=== PATIENT | female | born 1990 | race African-American/Black ===

== ENCOUNTER 2024-09-03 11:17 | Emergency (ER) | payer OTHER ==
[~2024-09-03] VITALS: Ht 167.6 cm; Wt 99.8 kg
--- NOTE | 2024-09-03 11:23 | ERN ---
General Chief Complaint: Abdominal Pain Stated Complaint: ABDOMINAL PAIN Time Seen by MD: 11:19 Source: patient History of Present Illness Initial Comments IN HIS IS A 34-YEAR-OLD FEMALE COMING IN TO BE EVALUATED FOR SUPRAPUBIC PAIN. PATIENT IS A AT 23 WEEKS BY DATE AND STATES HE IS A NEWLY ESTABLISHED PATIENT OF DR. SOLIS. SHE STATES THAT THE PAIN BEGAN TWO DAYS AGO AND HAS BEEN PROGRESSIVELY GETTING WORSE. ALONG WITH THE PAIN PATIENT STATES THAT SHE HAS BEEN HAVING NAUSEOUSNESS AND VOMITING. Allergies: Coded Allergies: No Known Drug Allergies (Unverified Allergy, Unknown, 09/03/24) ROS Dictation CONSTITUTIONAL: NO CHILLS, NO FEVER, NO WEAKNESS, NO DIAPHORESIS, NO MALAISE. HEAD/FACE: NO SIGNS OF TRAUMA. EENT: NO EYE PAIN, NO BLURRED VISION, NO TEARING, NO DOUBLE VISION, NO EAR PAIN, NO EAR DISCHARGE, NO NOSE PAIN, NO NASAL CONGESTION, NO THROAT PAIN, NO THROAT SWELLING, NO MOUTH PAIN. RESPIRATORY: NO COUGH, NO ORTHOPNEA, NO SOB, NO STRIDOR, NO WHEEZING. CARDIOVASCULAR: NO CHEST PAIN, NO EDEMA, NO PALPITATIONS, NO SYNCOPE. GASTROINTESTINAL/ABDOMINAL: ABDOMINAL PAIN, NO CONSTIPATION, NO DIARRHEA, NAUSEA, VOMITING. GENITOURINARY: NO ABNORMAL DISCHARGE, NO DYSURIA, NO FREQUENT URINATION, NO HEMATURIA. NO COMPLAINTS OF PAIN IN THE GENITALS. MUSCULOSKELETAL: NO BACK PAIN, NO GOUT, NO JOINT PAIN, NO JOINT SWELLING, NO MUSCLE PAIN, NO MUSCLE STIFFNESS, NO NECK PAIN. INTEGUMENTARY: NO CHANGE IN COLOR, NO CHANGE IN HAIR/NAILS, NO DRYNESS, NO LESION, NO LUMPS, NO RASH. NEUROLOGICAL/PSYCH: NO ANXIETY, NOT DEPRESSED, NO EMOTIONAL PROBLEM, NO HEADACHE, NO NUMBNESS, NO PRE-EXISTING DEFICIT, NO HISTORY OF SEIZURES, NO TREMORS, NO WEAKNESS. HEMATOLOGIC/LYMPHATIC: NOT ANEMIC, NO HISTORY OF BLOOD CLOTS, NO APPARENT BLEEDING, NO BRUISING, GLANDS NOT SWOLLEN. ALL SYSTEMS NEGATIVE, EXCEPT NOTED. Physical Exam Physical Exam Dictation VITAL SIGNS: REVIEWED. GENERAL APPEARANCE: ALERT, ORIENTED X3, NO ACUTE DISTRESS, OBESE. HEAD AND FACE: NON-TRAUMATIC. EYES: PERRL, PINK CONJUNCTIVAS, EYELID NO TRAUMA, ANTERIOR CHAMBER CLEAR. EARS: PINNAS INTACT AND NO SIGNS OF TRAUMA OR ERYTHEMA. EAR CANALS CLEAR AND NO DISCHARGE. TMS NO ERYTHEMA. NOSE: NO DISCHARGE, NO BLEEDING. OROPHARYNX: MOUTH NORMAL, TEETH NO CARIES, TONGUE PINK. PHARYNX CLEAR, NO ERYTHEMA. TONSILS NO EXUDATES, NO ABSCESSES NOTED. MUCOUS MEMBRANE MOIST. NECK: SUPPLE, NON-TENDER, NO THYROMEGALY, NO MASSES, NO JVD, NO BRUITS. BREAST: DEFERRED. CHEST: NO TENDERNESS, NO CREPITUS, NO PARADOXICAL MOVEMENT, NO RETRACTIONS. LUNGS: CLEAR, WELL-VENTILATED, SYMMETRIC, NO RALES, NO WHEEZING, NO RHONCHI, NO STRIDOR, GOOD BREATH SOUNDS BILATERALLY. HEART: REGULAR RATE, REGULAR RHYTHM, NO MURMUR, NO GALLOPS. VASCULAR: NO PERIPHERAL EDEMA. ABDOMEN: SOFT, POSITIVE BOWEL SOUNDS, NONDISTENDED, NO GUARDING, SUPRAPUBIC TENDER, NO REBOUND, NO MASSES NO HEPATOMEGALY, NO SPLENOMEGALY, NO KAPADIA'S SIGN, NO HERNIAS. RECTAL: DEFERRED. GENITAL: DEFERRED. NEUROLOGICAL: NORMAL SPEECH, GROSS MOTOR FUNCTION INTACT, GROSS SENSORY FUNCTION INTACT. MUSCULOSKELETAL: NECK NONTENDER, FULL RANGE OF MOTION, BACK NONTENDER, FULL RANGE OF MOTION. EXTREMITIES: NONTENDER, FULL RANGE OF MOTION. SKIN: COLOR PINK, DRY, NO TURGOR, NO RASH, NO LACERATIONS, NO ABRASIONS, NO CONTUSIONS. LYMPHATICS: DEFERRED. Results Laboratory and Microbiology Lab and Micro Result Laboratory Tests Test 09/03/24 11:31 White Blood Count 12.4 K/uL (4.8-10.8) H Red Blood Count 3.53 MIL/uL (4.00-5.50) L Hemoglobin 11.1 g/dL (12.0-16.0) L Hematocrit 32.7 % (36-48) L Mean Corpuscular Volume 92.6 fL (79-99) Mean Corpuscular Hemoglobin 31.4 pg (27.0-33.0) Mean Corpuscular Hemoglobin Concent 33.9 g/dL (32.0-36.0) Red Cell Distribution Width 13.3 % (11.0-15.5) Platelet Count 312 K/uL (130-400) Mean Platelet Volume 10.7 fL (7.5-10.5) H Immature Granulocyte % (Auto) 0.5 % (0-1) Neutrophils (%) (Auto) 80.3 % (40.0-77.0) H Lymphocytes (%) (Auto) 11.5 % (21.0-51.0) L Monocytes (%) (Auto) 6.9 % (3.0-13.0) Eosinophils (%) (Auto) 0.6 % (0.0-8.0) Basophils (%) (Auto) 0.2 % (0.0-5.0) Neutrophils # (Auto) 10.0 K/uL (1.8-7.7) H Lymphocytes # (Auto) 1.4 K/uL (1.0-4.8) Monocytes # (Auto) 0.9 K/uL (0.1-1.0) Eosinophils # (Auto) 0.07 K/uL (0.00-0.70) Basophils # (Auto) 0.03 K/uL (0.00-0.20) Absolute Immature Granulocyte (auto 0.06 K/uL (0-1) Nucleated Red Blood Cells 0.0 % (0.0-0.19) Sodium Level 135 mmol/L (136-145) L Potassium Level 3.4 mmol/L (3.5-5.1) L Chloride Level 101 mmol/L (101-111) Carbon Dioxide Level 22 mmol/L (21-32) Blood Urea Nitrogen 5 mg/dL (7-18) L Creatinine 0.6 mg/dL (0.5-1.0) Glomerular Filtration Rate Calc 121 mL/min (>90) Random Glucose 93 mg/dL (70-105) Total Calcium 8.8 mg/dL (8.5-10.1) Labs Reviewed?: Yes EKG/XRAY/US/CT/MRI Ultrasound Comment [place] [id number] [place] [address] IMAGING REPORT Signed PATIENT: JOSE JUAN HANNA MR#: [id number] : 1990 SEX: F AGE: 34 LOCATION: [facility] ORDER 21 STATUS: REG ER REPORT#: [id number] SERVICE 19 REASON: SUPRAPUBIC PAIN ORDERING PHYSICIAN: ROXY GALLEGOS MD PROCEDURE: OB >14 - US OB >14 WEEKS US OB >14 WEEKS HISTORY: SUPRAPUBIC PAIN. FINDINGS: Single fetus in cephalic presentation. heart rate: 149 bpm. Amniotic fluid index: 15 cm- normal. Placenta: Posterior and grade 2. Limited anatomical examination. BIOMETRIC DATA: Biparietal diameter: 6.60 cm, consistent with gestational age of 26 weeks 4 days. Head circumference: 24.61 cm, consistent with gestational age of 26 weeks 5 days. Abdominal circumference: 21.65 cm, consistent with gestational age of 26 weeks 1 day. Femoral length: 4.87 cm, consistent with gestational age of 26 weeks 3 days. weight: 918 grams. IMPRESSION: Single intrauterine of 26 weeks 3 days. DICTATED BY: SRINATH PACE MD DATE: 09/03/24 1228 ELECTRONICALLY SIGNED BY: SRINATH PACE MD DATE: 09/03/24 1233 [facility] MDM: DIFFERENTIAL DIAGNOSIS: ABDOMINAL PAIN IN LATE GESTATION, GREATER THAN 20 WEEKS GESTATIONAL AGE, RATIONALE: TESTS CONSIDERED AND ORDERED SECONDARY TO SHARED DECISION MAKING INCLUDE: PREVIOUS OUTSIDE RECORDS REVIEWED: OLD ER VISITS. RISK OF COMPLICATION AND/OR MORBIDITY OR MORTALITY OF PATIENT MANAGEMENT: NONE MEDICATIONS-PER MEDICATION RECONCILIATION NEED FOR HOSPITALIZATION: PATIENT DOES NOT MEET CRITERIA FOR HOSPITALIZATION. NEED FOR EMERGENCY MAJOR/MINOR SURGERY: NO THERE ARE NO SOCIAL CONCERNS WITH THIS PATIENT. PRESCRIPTION DRUG MANAGEMENT PRESCRIPTIONS WILL INCLUDE SYMPTOMATIC CARE PATIENT'S PRIOR EXTERNAL MEDICAL RECORDS FROM OTHER ER VISITS WERE REVIEWED BY ME INDICATED. PRIOR TESTING AND RESULTS FROM PREVIOUS VISITS WERE REVIEWED. PRIOR TESTS WERE TAKEN INTO ACCOUNT WITH MEDICAL DECISION MAKING AND RESOURCE UTILIZATION, INDEPENDENT HISTORIAN/HISTORIANS WERE USED TO OBTAIN COMPLETE MEDICAL HISTORY. I INDEPENDENTLY INTERPRETED THE TEST THAT WERE PERFORMED, RESULTS WERE REVIEWED BY ME AND CONSIDERED FINDINGS ON RADIOLOGY IF ORDERED. MEDICAL MANAGEMENT AND EXAMINATION INTERPRETATION DISCUSSIONS WERE HAD BY ME WITH OTHER QUALIFIED HEALTHCARE PROFESSIONALS INDICATED FOR THE PATIENT'S CARE. PATIENT WILL BE TRANSFERRED TO [facility] UNDER THE CARE OF DR. SOLIS FOR ONGOING EVALUATION AND MANAGEMENT OF ABDOMINAL PAIN IN . ED Course Orders Procedure Category Date Status Time Cbc With Differential LAB 09/03/24 Complete 11:20 Basic Metabolic Panel LAB 09/03/24 Complete 11:20 ,Urine Test LAB 09/03/24 Logged 11:20 Drug Screen Urine LAB 09/03/24 Logged 11:20 Urinalysis LAB 09/03/24 Logged W/Microscopic 11:20 Us Ob >14 Weeks US 09/03/24 Resulted 11:20 0.9%Nacl 1000ml (Ns PHA 09/03/24 Complete 1000ml) 11:30 Acetaminophen 500mg PHA 09/03/24 Complete Tab (Tylenol 500mg T 11:30 Current Medications Medications (Trade) Dose Ordered Sig/Yasmani Route PRN Reason Start Time Stop Time Status Last Admin Dose Admin Acetaminophen (TYLenol 500MG TAB) 500 mg ONCE ONCE PO 09/03/24 11:30 09/03/24 11:31 DC 09/03/24 12:29 Sodium Chloride 1,000 ml @ 0 mls/hr ONCE ONCE IV 09/03/24 11:30 09/03/24 11:31 DC 09/03/24 12:28 Vital Signs Date Time Temp Pulse Resp B/P (MAP) Pulse Ox O2 Delivery O2 Flow Rate FiO2 09/03/24 12:43 98.8 80 16 114/72 100 Room Air* 0 21 09/03/24 11:33 97.9 76 24 133/76 99 Room Air* 0 09/03/24 11:19 99.0 83 16 123/66 99 Room Air DX & DISP Disposition: Transfer Departure Impression: Primary Impression: 26 weeks gestation of Additional Impression: Abdominal pain Condition: Stable Referrals: SELF,REFERRAL (PCP) ROXY GALLEGOS MD September 03, 2024 11:23
[2024-09-03 11:48] LABS: BASOPHILS # (AUTO) 0.03 K/uL (0.00-0.20); BASOPHILS % (AUTO) 0.2 % (0.0-5.0); EOSINOPHILS # (AUTO) 0.07 K/uL (0.00-0.70); EOSINOPHILS % (AUTO) 0.6 % (0.0-8.0); HEMATOCRIT 32.7 % (36-48); IMMATURE GRANULOCYTE ABSOLUTE 0.06 K/uL (0-1); LYMPHOCYTES # (AUTO) 1.4 K/uL (1.0-4.8); LYMPHOCYTES % (AUTO) 11.5 % (21.0-51.0); MEAN CORPUSCULAR HEMOGLOBIN 31.4 pg (27.0-33.0); MEAN CORPUSCULAR HGB CONC 33.9 g/dL (32.0-36.0); MEAN CORPUSCULAR VOLUME 92.6 fL (79-99); MONOCYTES # (AUTO) 0.9 K/uL (0.1-1.0); MONOCYTES % (AUTO) 6.9 % (3.0-13.0); NEUTROPHILS % (AUTO) 80.3 % (40.0-77.0); PLATELET COUNT (AUTO) 312 K/uL (130-400); RED BLOOD CELL COUNT(AUTO) 3.53 MIL/uL (4.00-5.50); RED CELL DISTRIBUTION WIDTH 13.3 % (11.0-15.5); WHITE BLOOD COUNT (AUTO) 12.4 K/uL (4.8-10.8)
[2024-09-03 11:56] LABS: CREATININE 0.6 mg/dL (0.5-1.0); POTASSIUM 3.4 mmol/L (3.5-5.1)
[2024-09-03] MEDS: 0.9%NACL 1000ML 1,000 ML IV ONE (12:28)
[2024-09-03] MEDS: acetaMINOPHEN 500 MG TABLET PO ONE (12:29)
--- NOTE | 2024-09-03 12:33 | HMCIMG ---
US OB >14 WEEKS HISTORY: SUPRAPUBIC PAIN. FINDINGS: Single fetus in cephalic presentation. heart rate: 149 bpm. Amniotic fluid index: 15 cm- normal. Placenta: Posterior and grade 2. Limited anatomical examination. BIOMETRIC DATA: Biparietal diameter: 6.60 cm, consistent with gestational age of 26 weeks 4 days. Head circumference: 24.61 cm, consistent with gestational age of 26 weeks 5 days. Abdominal circumference: 21.65 cm, consistent with gestational age of 26 weeks 1 day. Femoral length: 4.87 cm, consistent with gestational age of 26 weeks 3 days. weight: 918 grams. IMPRESSION: Single intrauterine of 26 weeks 3 days.
--- NOTE | 2024-09-03 12:37 | NUR ---
TRANSFER REQUEST FOR OB SERVICE BY WILL JURADO RN
[2024-09-03 12:43] VITALS: BP 114/72; PULSE 80; RESP 16; TEMP 98.8; O2SAT 100
--- NOTE | 2024-09-03 14:10 | NUR ---
REPORT GIVEN TO JACIK BARGER [facility] [place] [facility]AGE
== END 2024-09-03 14:52 | disposition short-term general hospital (02) ==
LOC: EDH 11:17
DX: O26.892 Other specified pregnancy related conditions, second trimester (principal); R10.30 Lower abdominal pain, unspecified; Z3A.26 26 weeks gestation of pregnancy
CPT/HCPCS: 99285; 96360; 76805; 96361; 80048; 85025; 36415; J7030